=== PATIENT | male | born 1960 | race Two or more races ===

== ENCOUNTER 2019-03-01 17:22 | Emergency (ER) | payer MEDICARE, MEDICAID ==
[~2019-03-01] VITALS: Ht 180.3 cm; Wt 91.0 kg
[2019-03-01 19:35] VITALS: BP 132/78
== END 2019-03-01 19:46 | disposition home or self-care (01) ==
LOC: ED 19:20
DX: S39.012A Strain of muscle, fascia and tendon of lower back, initial encounter (principal); I10 Essential (primary) hypertension; E11.9 Type 2 diabetes mellitus without complications; I25.2 Old myocardial infarction; W01.10XA Fall on same level from slipping, tripping and stumbling with subsequent striking against unspecified object, initial encounter; Y93.89 Activity, other specified; Y92.009 Unspecified place in unspecified non-institutional (private) residence as the place of occurrence of the external cause; Y99.8 Other external cause status
CPT/HCPCS: 72110; 96372; 99283; J1170

== ENCOUNTER 2019-03-01 17:24 | Emergency (ER) | payer MEDICARE, MEDICAID | END 2019-03-01 19:24 | LOC: ED 18:00 → MERGE 18:00 → ED 19:24 | DX: S39.012A Strain of muscle, fascia and tendon of lower back, initial encounter (principal); I10 Essential (primary) hypertension; E11.9 Type 2 diabetes mellitus without complications; I25.2 Old myocardial infarction; W01.0XXA Fall on same level from slipping, tripping and stumbling without subsequent striking against object, initial encounter; Y93.89 Activity, other specified; Y92.009 Unspecified place in unspecified non-institutional (private) residence as the place of occurrence of the external cause; Y99.8 Other external cause status | CPT/HCPCS: 99283 ==

== ENCOUNTER 2019-03-12 18:37 | Emergency (ER) | payer MEDICARE, MEDICAID ==
[~2019-03-12] VITALS: Ht 180.3 cm; Wt 90.9 kg
[2019-03-12 20:24] VITALS: BP 109/73
== END 2019-03-12 20:28 | disposition home or self-care (01) ==
LOC: ED 18:38
DX: R51 Headache (principal); R42 Dizziness and giddiness; M54.2 Cervicalgia; I25.2 Old myocardial infarction; I10 Essential (primary) hypertension; E11.9 Type 2 diabetes mellitus without complications
CPT/HCPCS: 93005; 96372; 99283; J0780; J1885; Q0163